=== PATIENT | female | born 1945 | race Caucasian/White ===

== ENCOUNTER → 2016-08-25 | Outpatient (CLI) | payer MEDICARE ==
[~2016-08-25] MED LIST: AMBIEN 10MG TAB10 MG PO; BACTRIM DS 8001 TAB PO; CARDIZEM CD240 MG PO; CITRACAL200 MG PO; FLEXERIL10 MG PO; GABAPENTIN800 MG PO; I CAPS PO; LOPID600 MG PO; MECLIZINE25 MG PO; NEURONTIN 300M300 MG PO; PERCOCET 325 MG1 TA3 PO; PERCOCET 325 MG1 TA4 PO; PHENERGAN 25MG.25 M1 PO; VITAMIN D2000 I1 PO; VOLTAREN75 MG PO; ZANAFLEX4 MG NG
--- NOTE | 2016-08-29 15:47 | RADIOLOGY REPORT PS360 ---
CT SINUS (MAX-FACIAL W/O CONT) ORDERING PHYSICIAN : Aroldo Jacobs MD PATIENT AGE: 71 years GENDER: Female INDICATION: SINUSITIS history of sinus surgery chronic sinusitis TECHNIQUE: Helical CT scanning performed through the paranasal sinuses with sagittal and coronal reconstructions on CT workstation COMPARISON: Previous 10/16/2013 CT sinuses FINDINGS Maxillary Sinuses. Well-developed with no acute findings minor observations Right maxillary sinus. : Minor Dome shaped mucosal thickening or more likely retention cyst at floor decreased size since previous study 2013 4 mm height 5 mm AP today's exam. Also Tiny 4 mm area of focal focal mucosal thickening posterior superior right maxillary sinus Left maxillary sinus: only scant less than 2 mm mucosal thickening at floor. Negligibl Ethmoid air cells. Opacification of the mid left ethmoid air cells are unchanged since previous studies 2013. Mild inflammatory thickening anterior to this left more so than right ethmoid air cell Sphenoid sinus clear unremarkable. Frontal sinuses,:. Well-developed. Clear unremarkable nasal septum. No prominent deviation. There may be some very subtle convexity of mid septum to the left moderate engorgement nasal turbinates bilaterally. Orbits unremarkable. Mastoid air cells. Extensive development mastoid air cells appear clear bilaterally. Middle ear clear IACs unremarkable.. IMPRESSION: IMPRESSION 1. Paranasal sinuses well-developed, with no acute sinusitis, and no significant change since 2013 . Minor observations. No prominent findings: Again note of opacification at mid left left ethmoid air cells stable since 2013 2013 Maxillary sinuses with only very minor observations
== END ==
LOC: RAD 14:17
DX: J32.9 Chronic sinusitis, unspecified (principal)

== ENCOUNTER 2017-06-22 19:46 | Inpatient (IN) | payer MEDICARE ==
[~2017-06-22] VITALS: Ht 182.9 cm; Wt 99.9 kg
[2017-06-22 19:49] VITALS: BP 209/108
[2017-06-22] MEDS ORDERED: OMEPRAZOLE40 MG PO (19:57)
[2017-06-22] MEDS ORDERED: DICLOFENAC SODI75 M2 PO (19:57)
[2017-06-22 20:10] LABS: HEMOGLOBIN 14.1 g/dL (12.2-16.2); LYMPH # 3.4 K/mm3 (0.7-4.5); LYMPH % 30.7 % (10-50.0)
--- OUTSIDE RECORDS SUMMARY | 2017-06-22 20:11 | External Medical Summary Rpt ---
Author Author [facility] Organization [facility] Address Unknown Phone Unavailable Care Team Providers Care Box Spring Maker Name Role Phone ANITA, (REF) PCP [phone] Encounter ANISHA OVALLE [id number] Date(s): 07/28/15 - 07/26/16 [facility] [address] [place] [address]- Discharge Disposition: OP Self Care or Home Attending Physician: LIS HEDRICK MD Admitting Physician: LIS HEDRICK MD Referring Physician: LIS HEDRICK MD Reason for Visit ENCNTR SCREEN MAMMOGRAM FOR MALIGNANT NEOPLASM OF BREAST Vital Signs No data available for this section Problem List No data available for this section Allergies, Adverse Reactions, Alerts No data available for this section Medications No data available for this section Results No data available for this section Immunizations No data available for this section Procedures No data available for this section Social History No data available for this section Assessment and Plan No data available for this section Hospital Discharge Instructions No data available for this section
--- OUTSIDE RECORDS SUMMARY | 2017-06-22 20:11 | External Medical Summary Rpt ---
Author Author [facility] Organization [facility] Address Unknown Phone Unavailable Care Team Providers Care Surveillance Officer Name Role Phone ANITA, (REF) PCP [phone] Encounter ANISHA OVALLE [id number] Date(s): 07/28/15 - 07/26/16 [facility] [address] [place] [address]- Discharge Disposition: OP Self Care or Home [...]
--- OUTSIDE RECORDS SUMMARY | 2017-06-22 20:12 | External Medical Summary Rpt | CCD ---
Author Author [facility] Organization [facility] Address Unknown Phone Unavailable Purpose Continuity of Care Document - through 2016
--- OUTSIDE RECORDS SUMMARY | 2017-06-22 20:12 | External Medical Summary Rpt | CCD ---
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
--- OUTSIDE RECORDS SUMMARY | 2017-06-22 20:12 | External Medical Summary Rpt | CCD ---
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
--- NOTE | 2017-06-22 20:13 | Emergency Room Report ---
History of Present Illness Time Seen by 1953 Presenting Problem in Triage Pt arrived:Walked Presenting Problem:C/O CHEST PAIN WITH RADIATION TO LEFT ARM AND SHOULDER THAT STARTED AT APPROX 1800. DENIES AND NAUSEA/VOMITING BUT C/O SOB. HAD A COUPLE OF DIZZY SPELLS TODAY. USUALLY TAKES NEXIUM FOR THIS PROBLEM BUT IT DIDNT RESOLVE IT TONIGHT. Onset of symptoms date/time:06/22/1705/29/1800 or onset unknown for: Treatment Prior to Arrival: ON LINE CSR Provided by: Sepsis Risk Assessment: Temp: 98.1 B/P: 170/90 MAP: 141 Pulse: 97 Resp: 20 Recent fever? N Clinical Suspician of Infection? N Mental Status: 1 - Regular (Normal Baseline) Sepsis Risk:Possible Sepsis Risk Have you (or family members/close friends) recently traveled outside the [place]? N If Yes, where/when: Have you had exposure to infectious disease within the past month? N TB? Other? Specify: Source patient, RN notes reviewed, old records Exam Limitations no limitations Comment new onset ot lt sided sharp and pressure chest pain with rad to lt upper ext Cardiac Chest Pain Chest pain indicative of cardiac Yes Timing/Duration 1-3 hours, gone now Severity/Quality moderate, pressure Location central Chest Pain Radiation arm(s) Activities at Onset light activity Nitro Today/Relief 0.4 mg x 1, provided by ED, mild relief Aspirin Treatment Today 81 mg x 4, provided by ED Beta bennett treatment today no beta bennett taken Cardiac risk factors + family history, HTN controlled Prior Workup/Intervention no prior cardiac workup Timing/Duration this evening Severity moderate ALLERGIES Coded Allergies: No Known Allergies (10/31/15) Home Medications Active Scripts OXYCODONE HCL/ACETAMINOPHEN (Percocet 7.5-325 MG Tablet) 1 TAB PO BID #60 TAB Prov: 09/11/16 Reported Medications DILTIAZEM HCL (Diltiazem 24HR Cd) 1 TAB PO DAILY Gemfibrozil (Lopid) 1 TAB PO DAILY Zolpidem Tartrate (Ambien 10MG) 5 mg PO DAILY Cholecalciferol (Vitamin D) 1 TAB PO DAILY Diclofenac Sodium 75 MG PO BID #60 Omeprazole (Omeprazole 40MG) 40 MG PO DAILY PRN GERD #30 Ca Carb 500MG/Vit D 200MG (Citracal 200MG) 200 MG PO BID History Medical History General CAD? No Angina: No [place]: No Hypertension? Yes Hyperlipidemia? Yes CHF? No DVT? No PE? No COPD? No Asthma? No Anemia? No GERD? Yes Gastric ulcers? No GI Bleed? No Hernia? No Thyroid Problems? No Hypothyroidism? No CVA? No Seizures? No Diabetes? No Renal Insuffiency? No End Stage Renal Disease? No UTI? No Stones? No BPH? No GB Disease: No Nephritic Syndrome? No Asplenia? No Hepatitis? No Sickle Cell Disease? No Arthritis? Yes Migraines? No Cataracts? Yes Glaucoma? No MRSA? No HIV? No TB? No Anxiety? No Depression? No Cancer? No More? No Immunization Hx DT/Tetanus UNKNOWN Surgical Hx Previous Surgery?Y YESSI KNEE BACK X 4 D AND C GALLBLADDER SINUS SX - 10/2011 BLADDER SX Family History Family Hx Diabetes Yes Hypertension Yes Hyperlipidemia Yes Cancer Yes Social History Smoking Hx Smoker: Never Smoker Tobacco: No Packs/day N/A Alcohol Alcohol: No Drugs none Review of Systems All Other Systems Reviewed and Negative Constitutional denies fever Eyes denies drainage ENT denies: ear discharge, epistaxis, throat pain. Respiratory denies cough, denies shortness of breath, denies wheezing Cardiovascular see HPI, chest pain, denies syncope Gastrointestinal denies abdominal pain, denies diarrhea, denies vomiting Genitourinary denies: dysuria, frequency, hesitancy, hematuria. Musculoskeletal denies back pain, denies joint pain, denies neck pain Skin denies rash Psychiatric/Neurological denies headache, denies seizure Physical Exam Vital Signs Vital Signs Date Time Temp Pulse Resp B/P Pulse O2 O2 Flow FiO2 Ox Delivery Rate 06/229 101 16 125/95 93 2 06/22 2239 96 16 126/76 93 2 06/22 2222 97 16 131/55 93 2 06/22 2156 95 16 154/93 94 2 06/22 2143 97 20 149/80 91 2 06/22 2139 97 16 149/80 93 2 06/22 2133 97 22 136/99 93 2 06/22 2106 95 16 147/92 93 2 06/22 2103 16 06/22 2039 93 16 157/77 93 06/22 2036 16 06/22 2010 98.1 97 20 170/90 92 06/22 2004 20 06/22 1949 97 20 209/108 92 - WBC >12,000 or <4,000 or 10% bands? 2 or more SIRS Criteria Met? B/P:136/71 MAP:141 Creatinine >2.0? UA output<0.5ml/kg/hr for 2 hrs? Platelet count >100,000? Lactate >2.0mmol/1? INR >1.2 or PTT > than 60 sec? Evidence of Organ Dysfunction? Provider documented clinical suspician of infection? N Sepsis Criteria Count: 2 Sepsis Risk: Possible Sepsis Risk General Appearance no apparent distress Eye Exam - bilateral eye PERRL, bilateral eye EOMI Ear, Nose, Throat normal ENT inspection Neck supple Respiratory Status No: respiratory distress. Lung Sounds bilateral: lungs clear. 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 No Results/Orders Laboratory Tests 06/22/172214: Troponin I < 0.02 06/22/171957: Sodium 139, Potassium 3.9, Chloride 104, Carbon Dioxide 26, BUN 20 H, Creatinine 0.9, Estimated Creat Clear 90, Estimated GFR (MDRD) 62, Glucose 99, Calcium 9.0, Total Bilirubin 0.3, AST 17, ALT 26, Alkaline Phosphatase 77, Creatine Kinase 73, CK-MB (CK-2) Rel Index 0.7, CK and CKMB Interp 0.5, Troponin I < 0.02, Total Protein 7.3, Albumin 4.1, Globulin 3.2, Albumin/Globulin Ratio 1.3, WBC 11.0 H, RBC 4.58, Hgb 14.1, Hct 43.0, MCV 93.8, RDW 12.7, Plt Count 269, MPV 8.2, Gran % 59.8, Gran # 6.6, Lymphocytes % 30.7, Monocytes % 5.0, Eosinophils % 3.9, Basophils % 0.6, Lymphocytes # 3.4, Monocytes # 0.6, Eosinophils # 0.4, Basophils # 0.1, PUBS MCHC 32.8, MCH 30.8 Current Medication Orders Sig/Juliet Start time Last Medication Dose Route Stop Time Status Admin Acetaminophen 0 .STK-MED ONE 06/22 2335 DC PO Acetaminophen 650 MG ONCE ONE 06/22 2330 DC 06/22 PO 06/22 Famotidine 0 .STK-MED ONE 06/22 2146 DC IV Diphtheria/Pertussis/ 0 .STK-MED ONE 06/22 2144 DC Tetanus Vacc IM Famotidine 0 .STK-MED ONE 06/22 2139 DC IV Metoclopramide HCl 0 .STK-MED ONE 06/22 2138 DC .ROUTE Famotidine 20 MG ONCE ONE 06/22 2130 DC 06/22 IV 06/22 Metoclopramide HCl 10 MG ONCE ONE 06/22 2130 DC 06/22 IVP 06/22 Sodium Chloride 8 ML ONCE ONE 06/22 2130 DC IV 06/22 2131 Nitroglycerin/ 250 ML .STK-MED ONE 06/22 2116 DC Dextrose IV Nitroglycerin/ 250 ML ONCE ONE 06/22 2115 AC 06/22 Dextrose IV 06/26 0834 2121 Morphine Sulfate 4 MG ONCE ONE 06/22 2100 DC 06/22 IV 06/22 Morphine Sulfate 0 .STK-MED ONE 06/22 2059 DC .ROUTE Morphine Sulfate 4 MG ONCE ONE 06/22 2030 DC 06/22 IV 06/22 Nitroglycerin 1 IN ONCE ONE 06/22 2030 DC 06/22 TP 06/22 Nitroglycerin 0 .STK-MED ONE 06/22 2030 DC .ROUTE Ondansetron HCl 4 MG ONCE ONE 06/22 2030 DC 06/22 IV 06/22 Ondansetron HCl 0 .STK-MED ONE 06/22 2029 DC .ROUTE Morphine Sulfate 0 .STK-MED ONE 06/22 2028 DC .ROUTE Nitroglycerin 0.4 MG [id number] PRN 06/22 2015 AC 06/22 SL 2003 Aspirin 324 MG ONCE ONE 06/22 2000 DC 06/22 PO 06/22 Nitroglycerin 0.4 MG .[Q 5 IMNUTES] PRN 06/22 2000 CAN PO Sodium Chloride 10 ML PRN PRN 06/22 2000 AC IV 06/23 1959 Aspirin 0 .STK-MED ONE 06/22 1956 DC .ROUTE Nitroglycerin 0 .STK-MED ONE 06/22 1955 DC SL Orders Procedure Date/time Status Decision to admit 06/225 Active [id number] BY SAME 06/22 2214 Active ELECTROCARDIOGRAM REQUEST 06/22 2214 Active TROPONIN I 06/22 2214 Complete 12 LEAD EKG-BESSON (INITIAL) 06/22 2000 Active ELECTROCARDIOGRAM REQUEST 06/22 2000 Active IV SALINE LOCK 06/22 2000 Active SALES SUPPORT ADVISOR 06/22 2000 Active CBC WITH AUTO DIFF 06/22 2000 Complete CARDIAC ENZYMES 06/22 2000 Complete CHEM 12 PROFILE 06/22 2000 Complete CM/EKG CM/EKG 1 Monitor Rhythm Normal Sinus Rhythm EKG compared w/(date of old), non-spec. ST/Twave chgs CM/EKG 2 Monitor Rhythm Normal Sinus Rhythm EKG non-spec. ST/Twave chgs XRAY/CT/US XRAY/CT/US XRAY chest XR interpretation by reviewed by me Xray Results normal/NAD KATIE Score for N-Stemi/Angina KATIE N-STEMI SCORE KATIE N-STEMI SCORE Response Value Age of patient 65 yrs or more 1 Number of risk factors for CAD Presence of 3 or more 1 Prior coronary artery stenosis (seen in angiography) Less than 50% 0 ST-Segment deviation on ECG (>1 min) Absent 0 Prior aspirin intake No ASA in the last 7 days 0 Severe anginal chest pain No or 1 episode in 24h 0 Elevated cardiac markers(CK-MB or troponin) Absent 0 Total 2 Risk Stratification 0-2= Low Risk Patients Progress ED Progress Notes Date 06/23/17 Time 0006 Comment pain gone on ntg Departure Departure Time of Disposition 0005 Disposition Still a Patient Clinical Impression Primary Impression: Chest pain Qualifiers: Chest pain type: precordial pain Qualified Code: R07.2 - Precordial pain Condition STABLE Referrals Aroldo Jacobs MD (Family) discussed with dr gross ED Critical Care Critical Care No at 0007
--- OUTSIDE RECORDS SUMMARY | 2017-06-22 20:13 | External Medical Summary Rpt ---
Author Author [facility] [employer] Organization [employer] Address Unknown Phone Unavailable Results Opiates and Oxycodone(GC/MS),U Observa Value Referen Units Interpr Notes Date tion ce etation Range Oxycodo Positiv . No Abnorma Test Feb 12 ne/Oxym e informa l include 2017 orph tion in s 9:46 AM source Oxycodo data ne and [employer] sailaja Oxycodo Positiv . No Abnorma No Feb 12 ne e informa l informa 2017 tion in tion in 9:46 AM source source data data Oxycodo 889 Cutoff= ng/mL No No Feb 12 ne 100 informa informa 2017 (GC/MS) tion in tion in 9:46 AM source source data data [employer] Positiv . No Abnorma No Feb 12 sailaja e informa l informa 2017 tion in tion in 9:46 AM source source data data [employer] 1420 Cutoff= ng/mL No Perform Feb 12 sailaja 100 informa ed at: 2017 (GC/MS) tion in UI - 9:46 AM source [facility] data OTS [id number] [facility], [place], [place] [id number] 53Lab Directo r: Nadir Griffin MD, Phone: [phone] Opiates Negativ Cutoff= No No Opiate Feb 12 e 100 informa informa test 2017 tion in tion in include 9:46 AM source source s data data Codeine , Morphin e, Hydromo rphone, Hydroco done. Drugs identified in Urine by Screen method Observa Value Referen Units Interpr Notes Date tion ce etation Range Positive urine drug screen samples are stored for 7 days. Contact the Lab if confirmation of positives is needed. Ampheta NEGATIV <1000 ng/mL No No Feb 12 mine E informa informa 2017 [Presen tion in tion in 9:46 AM ce] in source source Urine data data by Screen method Barbitura <200 ng/mL No No Feb 12 silver informati informati 2016 9:46 [Mass/vol on in on in AM ume] in source source Urine by data data Screen method Benzodiaz 200 ng/mL ng/mL No No Feb 12 epines informati informati 2016 9:46 [Mass/vol on in on in AM ume] in source source Serum or data data Plasma by Screen method Cocaine <300 ng/g No No Feb 12 [Mass/vol informati informati 2016 9:46 ume] in on in on in AM Unspecifi source source ed data data specimen Methadone <300 ng/mL No No Feb 12 informati informati 2016 9:46 [Mass/vol on in on in AM ume] in source source Unspecifi data data ed specimen Opiates <300 ng/mL No No Feb 12 [Mass/vol informati informati 2016 9:46 ume] in on in on in AM Unspecifi source source ed data data specimen Phencycli <25 ng/mL No No Feb 12 dine informati informati 2016 9:46 [Mass/vol on in on in AM ume] in source source Unspecifi data data ed specimen 11-Hydr NEGATIV <50 ng/mL No No Feb 12 oxy E informa informa 2017 delta-9 tion in tion in 9:46 AM source source tetrahy data data drocann abinol [Presen ce] in Unspeci fied specime n
--- OUTSIDE RECORDS SUMMARY | 2017-06-22 20:13 | External Medical Summary Rpt | CCD ---
Demographics Preferred Language Sinhala Marital Status Unknown Druze Affiliation Unknown Race Unknown Ethnic Group Unknown Author Author , JONNY MERCADO Address Unknown Phone Immunization Unable to retrieve immunization data due to connection failure with Immunization Registry. Please try again later.
--- OUTSIDE RECORDS SUMMARY | 2017-06-22 20:13 | External Medical Summary Rpt ---
[...] - 9:46 AM source [facility] data OTS [id number] [facility], [place], [place] [address]Lab Directo r: Nadir Griffin MD, Phone: [phone] Opiates Negativ Cutoff= No No Opiate Feb [...]
--- OUTSIDE RECORDS SUMMARY | 2017-06-22 20:13 | External Medical Summary Rpt | CCD ---
Demographics Preferred Language Mohawk Marital Status Unknown Caodaism Affiliation Unknown Race Unknown Ethnic Group Unknown Author Author , JONNY MERCADO Address Unknown Phone Immunization Unable to retrieve immunization data due to connection failure with Immunization Registry. Please try again later.
[2017-06-22 20:30] LABS: BUN 20 mg/dL (7-18); GFR (ESTIMATED) 62 ML/MIN (59-)
--- NOTE | 2017-06-22 21:37 | RADIOLOGY REPORT PS360 ---
CHEST-PORTABLE HISTORY: C/O CHEST PAIN ORDERING PHYSICIAN: Mague Ram MD PATIENT AGE: 72 years COMPARISON: None available FINDINGS: Mild cardiomegaly without failure.. The lungs are clear without infiltrates, suspicious nodules, or pleural effusions. No acute bony abnormalities. IMPRESSION: Mild cardiomegaly otherwise negative
--- OUTSIDE RECORDS SUMMARY | 2017-06-22 23:43 | External Medical Summary Rpt | CCD ---
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
--- OUTSIDE RECORDS SUMMARY | 2017-06-22 23:43 | External Medical Summary Rpt | CCD ---
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
--- OUTSIDE RECORDS SUMMARY | 2017-06-22 23:44 | External Medical Summary Rpt | CCD ---
Demographics Preferred Language Welsh Marital Status Unknown Bahai Affiliation Unknown Race Unknown Ethnic Group Unknown Author Author , JONNY MERCADO Address Unknown Phone Immunization No patient found.
--- OUTSIDE RECORDS SUMMARY | 2017-06-22 23:44 | External Medical Summary Rpt ---
Author Author [employer], [employer] Organization [employer] Address Unknown Phone Unavailable Results CBC W Auto Differential panel in Blood Observa Value Referen Units Interpr Notes Date tion ce etation Range Basophils 0 - 0.2 K/MM3 Normal No Jun 22 informati 2016 7:58 [#/volume on in PM ] in source Blood by data Automated count Basophils 0.1 - 2.0 % Normal No Jun 22 informati 2016 7:58 leukocyte on in PM s in source Blood by data Automated count Eosinophi 0.0 - 0.4 K/mm3 Normal No Jun 22 ls informati 2016 7:58 [#/volume on in PM ] in source Blood by data Automated count Eosinophi 0.1 - % Normal No Jun 22 ls/100 12.0 informati 2016 7:58 leukocyte on in PM s in source Blood by data Automated count Granulocy 1.8 - 7.8 K/mm3 Normal No Jun 22 silver informati 2017 7:58 [#/volume on in PM ] in source Blood by data Automated count Granulocy 37.0 - % Normal No Jun 22 silver/100 80.0 informati 2016 7:58 leukocyte on in PM s in source Blood by data Automated count Hematocri 37.0 - % Normal No Jun 22 t [Volume 47.0 informati 2016 7:58 on in PM Fraction] source of Blood data Hemoglobi 12.2 - g/dL Normal No Jun 22 n 16.2 informati 2016 7:58 [Mass/vol on in PM ume] in source Blood data Lymphocyt 0.7 - 4.5 K/mm3 Normal No Jun 22 es informati 2016 7:58 [#/volume on in PM ] in source Unspecifi data ed specimen by Automated count Lymphocyt 10 - 50.0 % Normal No Jun 22 es informati 2016 7:58 [#/volume on in PM ] in source Unspecifi data ed specimen by Automated count Erythrocy 27 - 31.2 pg Normal No Jun 22 te mean informati 2016 7:58 corpuscul on in PM ar source hemoglobi data n [Entitic mass] Erythrocy 31.8 - g/dl Normal No Jun 22 te mean 35.4 informati 2016 7:58 corpuscul on in PM ar source hemoglobi data n concentra tion [Mass/vol ume] by Automated count Erythrocy 82.2 - fl Normal No Jun 22 te mean 97.8 informati 2016 7:58 corpuscul on in PM ar volume source [Entitic data volume] by Automated count Monocytes 0.1 - 1.0 K/mm3 Normal No Jun 22 informati 2016 7:58 [#/volume on in PM ] in source Blood by data Automated count Monocytes 1.7 - 9.3 % Normal No Jun 22 informati 2016 7:58 leukocyte on in PM s in source Blood by data Automated count Platelet 7.4 - fl Normal No Jun 22 mean 10.4 informati 2016 7:58 volume on in PM [Entitic source volume] data in Blood by Automated count Platelets 142 - 424 K/mm3 Normal No Jun 22 informati 2016 7:58 [#/volume on in PM ] in source Blood data Erythrocy 4.2 - 5.4 M/mm3 Normal No Jun 22 silver informati 2016 7:58 [#/volume on in PM ] in source Amniotic data fluid Erythrocy 11.5 - % Normal No Jun 22 te 17.5 informati 2016 7:58 distribut on in PM ion width source [Entitic data volume] by Automated count Leukocyte 4.8 - K/MM3 High No Jun 22 s 10.8 informati 2016 7:58 [#/volume on in PM ] in source Blood data Opiates and Oxycodone(GC/MS),U Observa Value Referen Units [...] No Feb 12 ne 100 informa informa 2016 (GC/MS) tion in tion in 9:46 AM source source data data [employer] Positiv . No Abnorma No Feb 12 sailaja e informa l informa 2017 tion in tion in 9:46 AM source source data data [employer] 1420 Cutoff= ng/mL No Perform Feb 12 sailaja 100 informa ed at: 2017 (GC/MS) tion in UI - 9:46 AM source [facility] data OTS [id number] Eileen Alejandro [facility], [place], [place] [id number] 53Lab Directo r: Nadir Griffin MD, Phone: [phone] Opiates Negativ Cutoff= No No Opiate Feb [...] No Feb 12 mine E informa informa 2016 [Presen tion in tion in 9:46 AM [...] 11-Hydr NEGATIV <50 ng/mL No No Feb 3 oxy E informa informa 2017 delta-9 tion in tion in 9:46 AM source source tetrahy data data drocann abinol [Presen ce] in Unspeci fied specime n
--- OUTSIDE RECORDS SUMMARY | 2017-06-22 23:44 | External Medical Summary Rpt ---
[...] - 9:46 AM source [facility] data OTS [id number] Eileen Alejandro [facility], [place], [place] [id number] 53Lab Directo r: Nadir Griffin MD, Phone: [phone] Opiates Negativ Cutoff= No No Opiate Feb [...]
--- OUTSIDE RECORDS SUMMARY | 2017-06-22 23:44 | External Medical Summary Rpt | CCD ---
Demographics Preferred Language Hebrew Marital Status Unknown Baptist Affiliation Unknown Race Unknown Ethnic Group Unknown Author Author , JONNY MERCADO Address Unknown Phone Immunization No patient found.
[2017-06-23] VITALS (17 sets, daily range): BP systolic 102–139; BP diastolic 46–69
[2017-06-23] MEDS ORDERED: VOLTAREN75 MG PO (01:07)
[2017-06-23] MEDS ORDERED: VITAMIN D310000 UNIT PO (08:24)
[2017-06-23] MEDS ORDERED: LOPID 600MG TA600 MG PO (08:24)
--- NOTE | 2017-06-23 08:32 | HISTORY AND PHYSICAL REPORT ---
History and Physical ([facility]) Date of admission: 06/23/17 Chief complaint: CP History: History of Present Illness: Ms. Champion is a 72yo female with a hx of HTN, HLP, osteoarthritis, fibromyalgia , and chronic back pain. She states she began having chest pain yesterday around 4:30pm. She states she had been busy all day and had felt fine up until 4:30 when she began having pain in the LEFT side of her chest that radiated to her LEFT shoulder blade. She took to omeprazole thinking this was acid reflux. When this didn't help, she presented to the emergency room for evaluation. She was given nitroglycerin and morphine and this did not stop her pain, therefore she was started on a nitroglycerin drip. She states it took about 2 hours on the drip for her pain to resolve. It had resolved by the time she reached the second floor and it has not returned. She states at this time she feels fine and is anxious to go home. Past Medical History: Medical History: CAD? No Angina: No DE: No Hypertension? Yes Hyperlipidemia? Yes CHF? No DVT? No PE? No COPD? No Asthma? No Anemia? No GERD? Yes Gastric ulcers? No GI Bleed? No Hernia? No Thyroid Problems? No Hypothyroidism? No CVA? No Seizures? No Diabetes? No Renal Insuffiency? No UTI? No Stones? No BPH? No GB Disease: No Nephritic Syndrome? No Asplenia? No Hepatitis? No Sickle Cell Disease? No Arthritis? Yes Migraines? No Cataracts? Yes Glaucoma? No MRSA? No HIV? No TB? No Anxiety? No Depression? No Cancer? No More? No Additional hx: 1. Fibromyalgia 2. Macular Degeneration 3. Chronic back pain Surgical history: Previous Surgery?Y YESSI KNEE BACK X 5 D AND C GALLBLADDER REPAIR SPINAL FLUID LEAK SINUS SX - 10/2011 BLADDER SX APPENDECTOMY C-SCOPES CATARACTS Medications: Active Scripts OXYCODONE HCL/ACETAMINOPHEN (Percocet 7.5-325 MG Tablet) 1 TAB PO BID #60 TAB Prov: 09/11/16 Reported Medications Cholecalciferol (Vitamin D3) (Vitamin D3) 10,000 UNIT PO DAILY Gemfibrozil (Lopid 600MG Tablet (Generic)) 600 MG PO BID Diclofenac Sodium (Voltaren 75mg (GEQ)) 75 MG PO BID DILTIAZEM HCL (Diltiazem 24HR Cd) 1 TAB PO DAILY Zolpidem Tartrate (Ambien 10MG) 5 mg PO DAILY Diclofenac Sodium 75 MG PO BID #60 Omeprazole (Omeprazole 40MG) 40 MG PO DAILY PRN GERD #30 Ca Carb 500MG/Vit D 200MG (Citracal 200MG) 200 MG PO BID Allergies: Coded Allergies: No Known Allergies (10/31/15) Family History: Family history: Postive for: CAD, DM, HTN, cancer, hyperlipidemia. Negative for: stroke. Social History: Smoking Hx Tobacco: No Smoker: Never Smoker Type: N/A Packs/day: N/A Are you exposed to second hand No Alcohol: Alcohol: No Hx of Drug Use: Drug Use? No Review of Systems: Constitutional No: fatigue, lethargy, malaise, weak. ENT Positive for: nasal congestion. No: sore throat. Cardiovascular Positive for: chest pain. No: edema, palpitations. Respiratory Positive for: shortness of air. No: productive cough (sputum), wheezing. GI No: abdominal pain, diarrhea, nausea, vomitting. (female) No: frequency, hematuria. Neurological Positive for: headache. No: dizziness, syncope, weakness. Musculoskeletal Positive for: myalgias. No: extremity pain, joint pain. Physical Exam: Vital signs: 1ST Vital Signs Result Date Time Pulse Ox 92 06/22 1949 B/P 209/108 06/22 1949 Pulse 97 06/22 1949 Resp 20 06/22 1949 Temp 98.1 06/22 2010 O2 Flow Rate 2 06/22 2106 O2 Delivery ROOM AIR 06/23 0000 Exam: General appearance: alert, awake, no acute distress Eyes: EOM's w/normal ROM, PERRLA ENT: mucous membranes moist, nose normal, pharynx normal Neck: non-tender, full range of motion, supple Cardiovascular: regular rate & rhythm Respiratory: clear to auscultation ABD: non-distended, normal bowel sounds, no rebound, soft, no tenderness, no guarding Extremities: no peripheral edema Musculoskeletal: equal muscle strength, motor intact, sensation intact Skin: normal color Neuro: normal mood/affect, oriented, speech clear Lab data: Labs: Laboratory Tests 06/23/17 0600: Troponin I < 0.02, Triglycerides 189, Cholesterol 143, LDL Cholesterol 74.2, VLDL Cholesterol 37.8, HDL Cholesterol 31.0 L 06/22/175: Troponin I < 0.02 06/22/171957: Sodium 139, Potassium 3.9, Chloride 104, Carbon Dioxide 26, BUN 20 H, Creatinine 0.9, Estimated Creat Clear 90, Estimated GFR (MDRD) 62, Glucose 99, Calcium 9.0, Total Bilirubin 0.3, AST 17, ALT 26, Alkaline Phosphatase 77, Creatine Kinase 73, CK-MB (CK-2) Rel Index 0.7, CK and CKMB Interp 0.5, Troponin I < 0.02, Total Protein 7.3, Albumin 4.1, Globulin 3.2, Albumin/Globulin Ratio 1.3, WBC 11.0 H, RBC 4.58, Hgb 14.1, Hct 43.0, MCV 93.8, RDW 12.7, Plt Count 269, MPV 8.2, Gran % 59.8, Gran # 6.6, Lymphocytes % 30.7, Monocytes % 5.0, Eosinophils % 3.9, Basophils % 0.6, Lymphocytes # 3.4, Monocytes # 0.6, Eosinophils # 0.4, Basophils # 0.1, PUBS MCHC 32.8, MCH 30.8 Radiology results: Results: CXR - Mild cardiomegaly otherwise negative Diagnosis(es): 1. Chest pain Status: Acute 2. Hypertension 3. Hyperlipidemia 4. Fibromyalgia 5. Chronic back pain greater than 3 months duration Plan: Cardiac enzymes have all been normal. Patient's nurse is stopping her nitro drip this am since her CP has resolved and she has developed a JIMENEZ. Will monitor to see if pain returns. If not, patient may be able to be discharged later today. (Rossy Stacy) Date of admission: 06/23/17 Diagnosis(es): 1. Chest pain Status: Acute 2. Hypertension 3. Hyperlipidemia 4. Fibromyalgia 5. Chronic back pain greater than 3 months duration Plan: Pt seen and examined. Concur with above assessment. If she remains pain free off NTG, will discharge home and plan for outpt adenosine cardiolyte. (Suri Cabrera MD) at 0832 at 0890
--- NOTE | 2017-06-23 09:36 | PHARMACY CLINIC NOTE ---
Patient Demographics Patient Demographics Admission date: 06/23/17 Date: 06/23/17 Time: 0936 Allergies Coded Allergies: No Known Allergies (10/31/15) HEIGHT- FT: 6 IN: 0.00 K.875 VTE General Information Labs: Laboratory Tests 06/22 1958 Hematology Hgb (12.2 - 16.2 g/dL) 14.1 Hct (37.0 - 47.0 %) 43.0 Plt Count (142 - 424 K/mm3) 269 Disclaimer The following section includes nursing documentation that has been pulled in for pharmacy review. Patient's VTE score: 1 Patient's VTE Risk: VERY LOW RISK Clinical trial participant? No VTE prophylaxis [id number] VTE prophylaxis ordered? Yes Type of prophylaxis/treatment: LAITH at 0936
[2017-06-23] MEDS ORDERED: ZOLPIDEM 5MG TAB5 MG PO (09:39)
[2017-06-23] MEDS ORDERED: NITROSTAT 0.4M0.4 MG SL (12:19)
--- NOTE | 2017-06-23 12:33 | ACUTE CARE PROGRESS NOTE (QUA) ---
Progress Notes Subjective Date 06/23/17 Time 1229 Note She has off the NTG x 4 hours with no recurrence of chest pain. She has up and about the room. She is eager to go home. Objective Exam General appearance: alert, no acute distress Cardiovascular: regular rate & rhythm, no murmur Respiratory: clear to auscultation Assessment/Plan Problem List 1. Chest pain Status: Acute 2. Ruled out for myocardial infarction 3. Hypertension 4. Hyperlipidemia 5. Fibromyalgia 6. Chronic back pain greater than 3 months duration Plan: Will discharge home with NTG SL and plan for outpt adenosine cardiolyte stress test. This inpt stay is expected to cross 2 MNs from start of care No at [id number]
--- NOTE | 2017-06-26 20:59 | DISCHARGE SUMMARY STANDARD ---
Discharge Summary ([facility]2) Date of admission: 06/23/17 Date of discharge: 06/23/17 Problem List: 1. Chest pain 2. Ruled out for myocardial infarction 3. Hypertension 4. Hyperlipidemia 5. Fibromyalgia 6. Chronic back pain greater than 3 months duration History of present illness: Ms. Champion is a 72yo female with a hx of HTN, HLP, osteoarthritis, fibromyalgia , and chronic back pain. She states she began having chest pain around 4:30pm. She states she had been busy all day and had felt fine up until 4:30 when she began having pain in the LEFT side of her chest that radiated to her LEFT shoulder blade. She took two omeprazole thinking this was acid reflux. When this didn't help, she presented to the emergency room for evaluation. She was given nitroglycerin and morphine and this did not stop her pain, therefore she was started on a nitroglycerin drip. She stated it took about 2 hours on the drip for her pain to resolve. It had resolved by the time she reached the second floor and it had not returned. Exam on admission: General appearance: alert, awake, no acute distress Eyes: EOM's w/normal ROM, PERRLA ENT: mucous membranes moist, nose normal, pharynx normal Neck: non-tender, full range of motion, supple Cardiovascular: regular rate & rhythm Respiratory: clear to auscultation ABD: non-distended, normal bowel sounds, no rebound, soft, no tenderness, no guarding Extremities: no peripheral edema Musculoskeletal: equal muscle strength, motor intact, sensation intact Skin: normal color Neuro: normal mood/affect, oriented, speech clear Hospital Course: Her cardiac enzymes were all normal and her nitro drip was turned off. She was given some tylenol for a JIMENEZ. After 4 hours off the nitro drip, she had no more CP. She was up and about in the room and was anxious to go home. She was stable to be discharged but will need a stress test on an outpatient basis. Discharge medications: Continue taking these medications: DILTIAZEM HCL (Diltiazem 24HR Cd) 240 MG CAP.ER.24H 240 MILLIGRAM ORAL DAILY Ca Carb 500MG/Vit D 200MG (Citracal 200MG) 200 MG TAB 200 MILLIGRAM ORAL TWICE A DAY OXYCODONE HCL/ACETAMINOPHEN (Percocet 7.5-325 MG Tablet) 1 EACH TABLET 1 TABLET ORAL TWICE A DAY Qty = 60 Diclofenac Sodium (Diclofenac Sodium) 75 MG TABLET. 75 MILLIGRAM ORAL TWICE A DAY Qty = 60 Omeprazole (Omeprazole 40MG) 40 MG CAPSULE. 40 MILLIGRAM ORAL DAILY as needed for ACID REFLUX Qty = 30 Cholecalciferol (Vitamin D3) (Vitamin D3) 10,000 UNIT TABLET 10,000 UNIT ORAL DAILY Gemfibrozil (Lopid 600MG Tablet (Generic)) 600 MG TABLET 600 MILLIGRAM ORAL TWICE A DAY Zolpidem Tartrate (Zolpidem) 5 MG TABLET 5 MILLIGRAM ORAL AT BEDTIME NEEDED as needed for SLEEP Qty = 90 Start taking the following new medications: Nitroglycerin (Nitrostat 0.4MG (1/150 Gr) Tabs #25) 0.4 MG TAB.SUBL 0.4 MILLIGRAM SUBLINGUAL EVERY FIVE MINUTES NEEDED as needed for CHEST PAIN Qty = 25 Refills = 1 Disposition: F/U with: Aroldo Jacobs MD Follow up: after stress test Activity: Cont Current activity Diet: Continue same diet Discharge to: HOME Agency needed? N at [id number]
== END 2017-06-23 13:55 | disposition home or self-care (01) | DRG 313 ==
LOC: ER 19:46 → 2ND 23:41 → ER 23:41 → 2ND 06-23 00:36
PROVIDERS: General Practice
DX: R07.9 Chest pain, unspecified (principal); I10 Essential (primary) hypertension; M19.90 Unspecified osteoarthritis, unspecified site; M54.9 Dorsalgia, unspecified; M79.7 Fibromyalgia
CPT/HCPCS: J2405

== ENCOUNTER → 2017-06-27 | Outpatient (CLI) | payer MEDICARE ==
[~2017-06-27] MED LIST changes: +DICLOFENAC SODI75 M2 PO; +LOPID 600MG TA600 MG PO; +NITROSTAT 0.4M0.4 MG SL; +OMEPRAZOLE40 MG PO; +VITAMIN D310000 UNIT PO; +ZOLPIDEM 5MG TAB5 MG PO
--- NOTE | 2017-06-28 11:52 | RADIOLOGY REPORT PS360 ---
History and Indications: Hypertension, hyperlipidemia, family history, chest pain, shortness of breath, syncope fatigue Procedure: Patient received 0.4 mg of Lexiscan resting heart rate 70 bpm, resting blood pressure 139/72 millimeters of mercury, with Lexiscan maximum heart rate achieved was 106 bpm is less than 85% of the maximum predicted heart rate and a blood pressure was 152/71 mmHg. With Lexiscan patient complained of shortness of breath and stomach discomfort. Electrocardiogram: Resting electrocardiogram showed sinus rhythm poor R wave progression, with Lexiscan, there is less than 1.[address] segment depression noted from the baseline EKG. The EKG portion of the Lexiscan Myoview is nondiagnostic. Cardiac stress and resting SPECT images: Cardiac stress and rest SPECT images were obtained using technetium 99 Myoview 10.6 mCi at rest and 31.9 mCi at stress, gated SPECT further analysis of segmental wall motion and calculation of ejection fraction also done. Cardiac stress and the suspect show mild decreased tracer activity in the anterolateral wall which improves on the resting images suggestive of reversible ischemia in that area. Computer derived ejection fraction is 55% with no segmental wall motion abnormality, right ventricle is normal size. Conclusion: 1. The EKG portion of the Lexiscan Myoview is nondiagnostic. 2. Scintigraphic evidence of mild reversible ischemia involving the anterolateral wall, computer derived ejection fraction is 55% with segmental wall motion abnormality, right ventricle is normal size and contractility. 3. Abnormal Lexiscan Myoview study.
== END ==
LOC: RAD 11:43
DX: R07.9 Chest pain, unspecified (principal)
CPT/HCPCS: A9502; J2785

== ENCOUNTER 2017-07-04 07:24 | Day surgery (SDC) | payer MEDICARE ==
[2017-07-04 07:53] LABS: HEMOGLOBIN 13.9 g/dL (12.2-16.2); LYMPH # 2.9 K/mm3 (0.7-4.5)
[2017-07-04 08:00] LABS: BUN 17 mg/dL (7-18)
[2017-07-04 08:01] LABS: GFR (ESTIMATED) 71 ML/MIN (59-)
--- NOTE | 2017-07-04 10:18 | RADIOLOGY REPORT PS360 ---
CARDIAC CATHETERIZATION DATE OF CATHETERIZATION:07/04/2017 9:44 AM PROCEDURES: 1. Left heart catheterization 2. Left ventriculogram 3. Selective coronary angiogram INDICATION FOR TEST: 1. High risk abnormal Myoview 2. Angina pectoris 3. Risk factors for coronary artery disease Informed consent was obtained prior to the procedure. COMPLICATIONS: None ESTIMATED BLOOD LOSS: Less than 10 ml. TECHNIQUE: One percent lidocaine used to anesthetize the right anterior aspect of the wrist. The right radial artery was accessed via the Seldinger technique. A 6 [place] sheath was placed in the right radial artery. 2.5 mg of verapamil, 800 mcg of nitroglycerin and 5000 U Heparin were given through the arterial sheath. The trap catheter was also used to perform left heart catheterization left ventriculogram and selective coronary angiogram at the end of the procedure the patient was transferred to the post-op holding area in stable condition for arterial sheath removal. ANGIOGRAPHIC RESULTS: 1. The left main artery normal 2. The left anterior descending artery has a proximal 20% nonflow limiting stenosis 3. The circumflex artery nondominant and normal 4. The right coronary artery dominant and normal 5. The [place] ventriculogram reveals normal 65% 6. The left ventricular end-diastolic pressure 20 mmHg IMPRESSION: 1. Mild nonflow limiting coronary artery disease 2. Normal ejection fraction 3. Mildly elevated LVEDP PLAN: 1. Risk factor modification 2. Treatment of hypertension 3. Daily baby aspirin 4. Medical management for angina which probably comes from microvascular ischemia and or endothelial dysfunction
[2017-07-04 13:19] VITALS: BP 122/65
== END 2017-07-04 13:24 | disposition home or self-care (01) ==
LOC: CATHLAB 07:24
PROVIDERS: Internal Medicine
PROC: B2111ZZ Fluoroscopy of Multiple Coronary Arteries using Low Osmolar Contrast (ICD-10-PCS; 2017-07-04)
PROC: B2151ZZ Fluoroscopy of Left Heart using Low Osmolar Contrast (ICD-10-PCS; 2017-07-04)
PROC: 4A023N7 Measurement of Cardiac Sampling and Pressure, Left Heart, Percutaneous Approach (ICD-10-PCS; principal; 2017-07-04 08:30)
DX: I25.119 Atherosclerotic heart disease of native coronary artery with unspecified angina pectoris (principal); R94.39 Abnormal result of other cardiovascular function study; I10 Essential (primary) hypertension
CPT/HCPCS: C1725; C1769; J1644; Q9967